=== PATIENT | male | born 1990 | race Two or more races ===

== ENCOUNTER 2016-08-25 19:53 | Emergency (ER) | payer SELFPAY ==
[2016-08-25] MEDS ORDERED: ONDANSETRON 4 MG ODT TAB ONE (22:14)
== END 2016-08-25 22:36 | disposition home or self-care (01) ==
LOC: ED 19:53
DX: F07.81 Postconcussional syndrome (principal); G44.309 Post-traumatic headache, unspecified, not intractable; I10 Essential (primary) hypertension
CPT/HCPCS: 99282; 99283; A9270